=== PATIENT | male | born 1975 | race Caucasian/White ===

== ENCOUNTER 2023-09-28 13:26 | Emergency (ER) | payer SELFPAY ==
[2023-09-28 13:40] VITALS: BP 111/70; PULSE 78; RESP 17; TEMP 98.7; BMI 29.7
[2023-09-28] MEDS ORDERED: KETOROLAC TROMETHAMINE 30 MG/1 ML VIAL ONE (15:31)
[2023-09-28] MEDS ORDERED: METOCLOPRAMIDE HCL INJECTION 10 MG/2 ML VIAL ONE (15:31)
[2023-09-28] MEDS: SODIUM CHLORIDE 0.9% 500 ML INFUS.BAG IV ONE (15:43)
[2023-09-28] MEDS: METOCLOPRAMIDE HCL INJECTION 10 MG/2 ML VIAL IVPB ONE (15:43)
[2023-09-28] MEDS: KETOROLAC TROMETHAMINE 30 MG/1 ML VIAL IVPUSH ONE (15:43)
== END 2023-09-28 17:00 | disposition home or self-care (01) ==
LOC: JER 13:26
PROC: 3E0333Z Introduction of Anti-inflammatory into Peripheral Vein, Percutaneous Approach (ICD-10-PCS; principal; 2023-09-28)
PROC: 3E033GC Introduction of Other Therapeutic Substance into Peripheral Vein, Percutaneous Approach (ICD-10-PCS; 2023-09-28)
DX: R51.9 Headache, unspecified (principal)
CPT/HCPCS: 70450-TC; 99284-25